=== PATIENT | male | born 1990 | race Caucasian/White ===

== ENCOUNTER 2018-03-05 23:04 | Emergency (ER) | payer MEDICAID ==
[~2018-03-05] VITALS: Ht 170.2 cm; Wt 69.9 kg
[2018-03-05 23:24] VITALS: BP 183/107
--- NOTE | 2018-03-06 00:02 | NUR ---
28 Y/O M BIBA W/C/O OF GENERALIZED WEAKNESS. PT WAS FOUND AT 711 AND CALLED EMS BECAUSE HE STATES HE IS NOT FEELING WELL. PT DENIES N/V/D; SKIN IS PINK/WARM/DRY; AAOX4, PERRL; LUNGS CLEAR BL, BREATHING UNLABORED; HR EVEN AND REGULAR, BL PERIPHERAL PULSES PRESENT; BS ACTIVE X4, NO TENDERNESS TO PALPATION, NO HEPATOSPLENOMEGALLY PALPATED, RESONANT TO PERCUSSION; PT DENIES ANY FEVER, CP, SOB, OR COUGH AT THIS TIME; PT STATES 0/10 PAIN AT THIS TIME; VSS; PATIENT POSITIONED FOR COMFORT; HOB ELEVATED; BEDRAILS UP X2; BED DOWN. hx right BKA, DM, HTN
[2018-03-06] MEDS ORDERED: CLINDAMYCIN 600 MG/4 ML VIAL IM ONE (01:45)
[2018-03-06 03:24] VITALS: BP 183/107
--- NOTE | 2018-03-06 03:24 | NUR ---
Patient discharged with v/s stable. Written and verbal after care instructions given and explained. Patient alert, oriented and verbalized understanding of instructions. LEFT THE ER BY WHEEL CHAIR. All questions addressed prior to discharge. ID band removed. Patient advised to follow up with PMD. Rx of BACTRIM, TRAMADOL, DOXYCLINE WAS given. Patient educated on indication of medication including possible reaction and side effects. Opportunity to ask questions provided and answered.
== END 2018-03-06 03:24 | disposition home or self-care (01) ==
LOC: MED 23:04
DX: L03.113 Cellulitis of right upper limb (principal); F17.200 Nicotine dependence, unspecified, uncomplicated; E11.9 Type 2 diabetes mellitus without complications; Z88.0 Allergy status to penicillin; Z88.6 Allergy status to analgesic agent; Z88.5 Allergy status to narcotic agent; Z90.49 Acquired absence of other specified parts of digestive tract; Z59.0 Homelessness
CPT/HCPCS: 99283; J3490